=== PATIENT | male | born 1995 | race Caucasian/White ===

== ENCOUNTER 2020-08-08 18:35 | Emergency (ER) | payer OTHER, SELFPAY ==
--- NOTE | ~2020-08-08 | CT_ITS ---
EXAMINATION: CT abdomen pelvis wo con DATE: 08/08/2020 20:25 INDICATION: Kidney stone. Left flank pain. TECHNIQUE: Computed tomography (CT) of the abdomen and pelvis was performed without intravenous contr ast. Automated exposure control and iterative reconstruction technique were employed. The dose-length product was 1217.68 mGy-cm. COMPARISON: CT abdomen and pelvis 06/01/2016 FINDINGS: The visualized portions of the lung bases are clear without pneumonia or pleural effusion. The heart size is normal. No pericardial effusion. The liver, gallbladder, spleen, pancreas, adrenal glands, and right kidney are normal. There is a 13 mm cyst in left kidney with punctate wall calcific ations. There is mild left hydronephrosis. There is a 2 mm stone in left ureteropelvic junction. Ther e are no dilated loops of bowel. The appendix is normal. There are no pathologically enlarged lymph n odes. There is no free intraperitoneal fluid. The bones are unremarkable. IMPRESSION: 1. 2 mm stone at left ureteropelvic junction with mild left hydronephrosis. Reviewed, dictated and finalized at location A. [employer]
[2020-08-08 19:05] VITALS: BP 138/98; PULSE 104; RESP 17; TEMP 36.6; O2SAT 100
[2020-08-08 19:16] LABS: Basophils Percent Auto 0.3 % (0.2-1.2); Eosinophils Percent Auto 0.3 % (0-4.4); Hematocrit 43.8 % (42.0-52.0); Hemoglobin 14.7 g/dL (14.0-18.0); Immature Granulocyte Absolute 0.02 K/mm3 (0.00-0.031); Immature Granulocyte Percent A 0.3 % (0-0.5); Lymphocytes Absolute Auto 1.34 K/mm3 (0.9-3.2); Mean Corpuscular HGB Conc 33.6 g/dl (32-36); Mean Corpuscular Hemoglobin 29.5 pg (26-34); Mean Corpuscular Volume 87.8 fl (80-100); Mean Platelet Volume 12.2 fl (7.4-10.4); Monocytes Absolute Auto 0.5 K/mm3 (0.1-0.6); Monocytes Percent Auto 6.8 % (2.6-8.5); Neutrophils Absolute Auto 5.2 K/mm3 (1.3-6.7); Neutrophils Percent Auto 73.3 % (45.5-73.1); Platelet Count Result 182 k/mm3 (150-375); Red Blood Count 4.99 M/mm3 (4.6-6.20); Red Cell Distribution Width 13.3 % (11.5-14.5); White Blood Count 7.1 K/mm3 (4.5-10.0)
[2020-08-08 19:28] LABS: Anion Gap 9 mmol/L (8-16); Blood Urea Nitrogen 14 mg/dL (9-20); Calcium 9.5 mg/dL (8.4-10.2); Carbon Dioxide 26 mmol/L (22-30); Chloride 106 mmol/L (98-107); Estimated CRCL calculation 176 ml/min; Estimated Glomerular Filt Rate > 60; Glucose 121 mg/dL (75-110); Potassium 4.1 mmol/L (3.4-5.0); Sodium 141 mmol/L (137-145)
[2020-08-08 19:44] LABS: Add Urine Microscopic? YES; Appearance Urine Cloudy (Clear); Bilirubin Urine Negative (Negative); Blood Urine 3+ (Negative); Color Urine Yellow (Yellow); Glucose Urine UA Negative (Negative); Ketones Urine Negative (Negative); Leukocyte Esterase Ur Negative LEU/UL (Negative); Mucus Urine Rare /lpf; Nitrate Urine Negative (Negative); Protein Urine 2+ mg/dL (Negative); RBC Urine >75 /hpf (0-2); Specific Grav Ur 1.021 (1.001-1.035); Urobilinogen Urine Negative mg/dL (<2.0)
[2020-08-08 20:48] VITALS: BP 129/80; PULSE 93; RESP 18; O2SAT 99
[2020-08-08 23:00] VITALS: BP 123/97; PULSE 82; RESP 12; O2SAT 99
--- NOTE | 2020-08-09 00:18 | ED.MALEGU ---
HPI - Male Genitourinary General Chief complaint: Urogenital-Male Stated complaint: testicle/flank pain, bloody urine Time Seen by Provider: 08/08/20 23:56 Source: patient Mode of arrival: ambulatory Limitations: no limitations History of Present Illness HPI Narrative: 24-year-old male comes into the emergency department today with complaints of left-sided flank pain and testicular pain. Patient states that it actually woke him up. He noted that he was complaining of pain in his left testicle. He states that he has never had pain like this before. Patient does note that at times he is urinated blood. He states that he is never had a kidney stone before and has never had any injuries to his testicles. Patient is in a monogamous relationship with his . Related Data Allergies Allergy/AdvReac Type Severity Reaction Status Date / Time No Known Allergies Allergy Verified 08/09/20 00:18 Review of Systems Review of Systems: Narrative: CONSTITUTIONAL: Denies fever, chills, or sweats. EYES: Denies visual changes, redness, or discharge. ENT: Denies rhinorrhea, congestion, sore throat, or otalgia. CARDIOVASCULAR: Denies chest pain, palpitations, or edema. RESPIRATORY: Denies cough or dyspnea. GASTROINTESTINAL: Denies abdominal pain, nausea, vomiting, or diarrhea. GENITOURINARY: Denies dysuria or hematuria. SKIN: Denies rash or itching. MUSCULOSKELETAL: Denies back pain, joint pain, or myalgia. NEUROLOGIC: Denies headache, numbness, dizziness, or weakness. PSYCHIATRIC: Denies anxiety or depression. [facility] Family History Family History Other Diabetes mellitus Family history of arthritis Family history of cardiovascular disease Family history of malignant neoplasm Social History Social History Smoking status: Never smoker Alcohol intake: current Exam Narrative: Exam Narrative: GENERAL: Well-appearing, well-nourished, and in no acute distress. HEAD: Normocephalic, atraumatic. EYES: PERRLA and EOMI. ENT: Nares clear, no rhinorrhea or epistaxis. Mucous membranes moist. NECK: Supple. No adenopathy or masses. No carotid bruits or JVD CHEST: Clear to auscultation. No respiratory distress. No wheezes rales or rhonchi HEART: Regular rate and rhythm. No murmur heard. Normal peripheral pulses. ABDOMEN: Soft, nontender, nondistended, normal active bowel sounds. : Circumcised male, tenderness to palpation in the left testicle, tenderness in the epididymis on the left. EXTREMITIES: Normal range of motion. No edema. SKIN: Warm, dry, no rash. NEURO: No focal deficits. Alert and oriented x3. PSYCH: Normal mood and affect. Course Reevaluation(s) Reevaluation #1: By the time I evaluated patient he noted that his pain had subsided. Explained to the patient the findings of his work-up. Patient states that he understands, has no further questions about the plan and will be discharged home to follow-up with urology. Time: 00:24 Vital Signs Vital signs: Vital Signs Temperature 36.6 C 08/08/20 19:05 Pulse Rate 104 H 08/08/20 19:05 Respiratory Rate 17 08/08/20 19:05 Blood Pressure 138/98 H 08/08/20 19:05 Pulse Oximetry 100 08/08/20 19:05 Temperature 36.6 C 08/08/20 19:05 Pulse Rate 82 08/08/20 23:00 Respiratory Rate 12 08/08/20 23:00 Blood Pressure 123/97 H 08/08/20 23:00 Pulse Oximetry 99 08/08/20 23:00 MDM - Male Genitourinary MDM Narrative Medical decision making narrative: In brief this 24-year-old male came into the emergency department tonight with complaints of pain in his left flank and left testicle. It was actually the testicular pain that woke him up. Patient was evaluated and worked up per nursing protocol while out in the waiting room. By the time I was able to evaluate the patient his pain had subsided. Review of his work-up does show that he has a ureteral stone, patien
[2020-08-09 00:35] VITALS: BP 131/74; PULSE 78; RESP 19; O2SAT 99
== END 2020-08-09 00:35 | disposition home or self-care (01) ==
LOC: ANHED 08-09 00:43
PROVIDERS: Emergency Medicine; Emergency Provider Emergency Medicine
DX: N20.1 Calculus of ureter (principal)
CPT/HCPCS: 36415; 74176; 80048; 81001; 85025; 99284

== ENCOUNTER → 2020-10-16 11:29 | Outpatient (CLI) | payer OTHER, SELFPAY ==
--- NOTE | ~2020-10-16 | US_ITS ---
EXAMINATION: US retroperitoneal comp DATE: 10/16/2020 11:50 INDICATION: Left ureteral stone presenting with bilateral flank pain TECHNIQUE: Multiple ultrasound grayscale images of the kidneys were obtained. COMPARISON: 08/08/2020 FINDINGS: The right kidney measures 10.1 x 5.1 x 6.9 cm. The left kidney measures 10.6 x 7.2 x 5.8 cm. The kidn eys demonstrate normal echogenicity. There is no hydronephrosis in either kidney. No stones identifi ed. The bladder is normal. IMPRESSION: 1. Normal kidneys without hydronephrosis. Reviewed, dictated and finalized at location A.
== END ==
PROVIDERS: Visit Provider Urology
DX: N20.1 Calculus of ureter (principal)
CPT/HCPCS: 76770